=== PATIENT | male | born 1995 | race Caucasian/White ===

== ENCOUNTER 2017-12-11 16:02 | Emergency (ER) | payer OTHER ==
[2017-12-11 16:52] VITALS: BP 129/64; PULSE 65; TEMP 98.8
[2017-12-11 17:24] VITALS: RESP 16
--- NOTE | 2017-12-11 18:01 | XR ---
EXAMINATION TYPE: XR chest 2V DATE OF EXAM: 12/11/2017 COMPARISON: 01/31/2015 HISTORY: Chest pain TECHNIQUE: Frontal and lateral views of the chest are obtained. FINDINGS: Heart and mediastinum are normal. Lungs are clear. Diaphragm is normal. Bony thorax appear s normal. IMPRESSION: Normal chest. No change.
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
== END 2017-12-11 18:16 | disposition home or self-care (01) ==
LOC: EC 16:02
DX: S20.212A Contusion of left front wall of thorax, initial encounter (principal); S20.211A Contusion of right front wall of thorax, initial encounter; R06.02 Shortness of breath; F17.200 Nicotine dependence, unspecified, uncomplicated; W22.8XXA Striking against or struck by other objects, initial encounter; Y93.72 Activity, wrestling
CPT/HCPCS: 71046; 93005; 99285

== ENCOUNTER 2018-02-13 15:00 | Emergency (ER) | payer OTHER ==
[2018-02-13 15:14] VITALS: BP 157/80; PULSE 91; RESP 18; TEMP 97.7
--- NOTE | 2018-02-13 15:55 | XR ---
Left elbow HISTORY: Pain and swelling for 2 days 3 views of the left elbow Bone mineralization, joint spaces and alignment are maintained. No evident joint effusion. There is s oft tissue swelling. IMPRESSION: Soft tissue swelling. No fracture or dislocation.
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
== END 2018-02-13 16:16 | disposition home or self-care (01) ==
LOC: EC 15:00
DX: M70.22 Olecranon bursitis, left elbow (principal); F17.200 Nicotine dependence, unspecified, uncomplicated
CPT/HCPCS: 99283

== ENCOUNTER 2018-11-05 02:15 | Emergency (ER) | payer OTHER ==
[2018-11-05 02:27] VITALS: BP 123/78; PULSE 78; RESP 18; TEMP 98.2
[2018-11-05] MEDS ORDERED: FLUORESCEIN STRIPS 1 MG STRIP LEFT EYE ONE (02:37)
[2018-11-05] MEDS ORDERED: PROPARACAINE 0.5% OPHTH DROPS 15 ML BTL LEFT EYE STA (02:37)
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
[2018-11-05] MEDS ORDERED: KETOROLAC 0.5% OPHTH DROPS 5 ML BTL BOTH EYES STA (02:52)
[2018-11-05] MEDS ORDERED: KETOROLAC 30 MG/ML 1 ML VIAL IM STA (02:53)
== END 2018-11-05 03:12 | disposition home or self-care (01) ==
LOC: EC 02:15
DX: H16.133 Photokeratitis, bilateral (principal); F17.200 Nicotine dependence, unspecified, uncomplicated
CPT/HCPCS: 99283; 96372; J1885

== ENCOUNTER 2019-08-06 15:31 | Emergency (ER) | payer OTHER ==
[2019-08-06 16:00] VITALS: BP 125/71; PULSE 85; RESP 18; TEMP 98.7
[2019-08-06] MEDS ORDERED: ACET/COD 300 MG/30 MG STARTER PACK 6 TAB BTL PO STA (16:37)
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
== END 2019-08-06 17:16 | disposition home or self-care (01) ==
LOC: EC 15:31
DX: K04.7 Periapical abscess without sinus (principal); S02.5XXA Fracture of tooth (traumatic), initial encounter for closed fracture; K02.9 Dental caries, unspecified; F17.200 Nicotine dependence, unspecified, uncomplicated; X58.XXXA Exposure to other specified factors, initial encounter
CPT/HCPCS: 99282

== ENCOUNTER 2020-09-12 21:55 | Emergency (ER) | payer OTHER ==
[2020-09-12 22:01] VITALS: BP 150/81; PULSE 96; RESP 18; TEMP 98.5
--- NOTE | 2020-09-12 22:45 | XR ---
EXAMINATION TYPE: XR wrist complete RT DATE OF EXAM: 09/12/2020 COMPARISON: NONE HISTORY: Wrist pain TECHNIQUE: 4 views FINDINGS: Carpal bones are intact. I see no fracture nor dislocation. There is developmentally short ulna. Metacarpals are intact. Scaphoid appears normal. IMPRESSION: Negative right wrist exam.
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
== END 2020-09-12 23:05 | disposition home or self-care (01) ==
LOC: EC 21:55
DX: S69.91XA Unspecified injury of right wrist, hand and finger(s), initial encounter (principal); F17.200 Nicotine dependence, unspecified, uncomplicated; J45.909 Unspecified asthma, uncomplicated; F41.9 Anxiety disorder, unspecified; F32.9 Major depressive disorder, single episode, unspecified; W51.XXXA Accidental striking against or bumped into by another person, initial encounter
CPT/HCPCS: 99283

== ENCOUNTER 2021-06-14 06:53 | Emergency (ER) | payer OTHER ==
[2021-06-14 07:07] VITALS: TEMP 97.6
[2021-06-14] MEDS ORDERED: ARTIFICIAL TEARS-HYPROMELLOSE DROPS 15 ML BTL BOTH EYES STA (07:08)
[2021-06-14] MEDS ORDERED: FLUORESCEIN STRIPS 1 MG STRIP BOTH EYES ONE (07:08)
[2021-06-14] MEDS ORDERED: TETRACAINE 0.5% OPHTH (PF) DROPS 4 ML BTL BOTH EYES STA (07:08)
[2021-06-14] MEDS ORDERED: ERYTHROMYCIN 5 MG/GM OPHTH OINT 3.5 GM TUBE BOTH EYES STA (07:09)
[2021-06-14] MEDS ORDERED: IBUPROFEN 600 MG TAB PO STA (07:26)
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
[2021-06-14 08:34] VITALS: BP 120/60; PULSE 84; RESP 18
== END 2021-06-14 08:37 | disposition home or self-care (01) ==
LOC: EC 06:53
DX: H16.133 Photokeratitis, bilateral (principal); J45.909 Unspecified asthma, uncomplicated; F41.9 Anxiety disorder, unspecified; F31.9 Bipolar disorder, unspecified; F17.200 Nicotine dependence, unspecified, uncomplicated; F12.90 Cannabis use, unspecified, uncomplicated
CPT/HCPCS: 99283

== ENCOUNTER 2022-05-29 10:06 | Emergency (ER) | payer OTHER ==
[2022-05-29 10:26] VITALS: BP 128/90; PULSE 72; RESP 19; TEMP 98.3
[2022-05-29] MEDS ORDERED: ACET/COD 300 MG/30 MG STARTER PACK 6 TAB BTL PO STA (10:30)
[2022-05-29] MEDS ORDERED: HYDROcodone/APAP 5-325MG 1 EACH TAB PO STA (10:30)
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
== END 2022-05-29 10:55 | disposition home or self-care (01) ==
LOC: EC 10:06
DX: K04.7 Periapical abscess without sinus (principal); J45.909 Unspecified asthma, uncomplicated; F31.9 Bipolar disorder, unspecified; F12.90 Cannabis use, unspecified, uncomplicated; F17.200 Nicotine dependence, unspecified, uncomplicated
CPT/HCPCS: 99282

== ENCOUNTER 2024-03-12 02:04 | Emergency (ER) | payer OTHER ==
[2024-03-12 02:09] VITALS: TEMP 97.7
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
[2024-03-12] MEDS: FAMOTIDINE 20 MG TAB PO STA (02:23)
[2024-03-12] MEDS: diphenhydrAMINE 50 MG CAP PO STA (02:23)
[2024-03-12 03:00] VITALS: BP 110/61; PULSE 80; RESP 16
== END 2024-03-12 02:59 | disposition home or self-care (01) ==
LOC: EC 02:04
CPT/HCPCS: 99283

== ENCOUNTER 2024-03-23 19:47 | Emergency (ER) | payer OTHER ==
[2024-03-23] MEDS: diphenhydrAMINE 50 MG/ML 1 ML VIAL IVP STA (20:23)
[2024-03-23] MEDS: DEXAMETHASONE SOD PHOSPHATE 10 MG/ML 1 ML VIAL IV STA (20:23)
[2024-03-23] MEDS: FAMOTIDINE 20 MG/2 ML VIAL IV STA (20:23)
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
[2024-03-23 21:40] VITALS: BP 111/66; PULSE 72; RESP 20; TEMP 97.6
== END 2024-03-23 21:35 | disposition home or self-care (01) ==
LOC: EC 19:47
CPT/HCPCS: 96374; 96375; 99283